=== PATIENT | female | born 1940 ===

== ENCOUNTER 2017-08-27 06:14 | Day surgery (SDC) | payer MEDICARE ==
[2017-08-27 07:26] VITALS: BMI 28.3
[2017-08-27] MEDS ORDERED: Bupivacaine 0.5% Inj(30mL) ONE (07:30)
[2017-08-27] MEDS ORDERED: Propofol 10 mg/ml Inj (20 ML) ONE ×2 (08:26→08:27)
[2017-08-27] MEDS ORDERED: Midazolam 2 MG/2 ML VIAL ONE (08:26)
[2017-08-27] MEDS ORDERED: Rocuronium 10 mg/ml (5 ml) ONE (08:27)
[2017-08-27] MEDS ORDERED: Glycopyrrolate 0.2 mg/ml (2ml vial) ONE (09:45)
[2017-08-27] MEDS ORDERED: Neostigmine Methylsulfate 3mg/3ml Syringe IV ONE (09:45)
[2017-08-27] MEDS ORDERED: Morphine 2 mg/ml ISec IVP PRN ×2 (09:58→11:57)
[2017-08-27] MEDS ORDERED: Lactated Ringer's 1,000 ML IV SCH (10:00)
[2017-08-27] MEDS ORDERED: Oxycodone/Acetaminophen 5/325 mg Tab PO PRN (10:09)
--- NOTE | 2017-08-27 10:09 | PCM.SURG1 ---
Surgeon's Initial Post Op Note - Surgeon's Notes Surgeon: Dr. Rankin Product Safety Expert: Dr. Tesfaye PGY3 Type of Anesthesia: General Endo, Block Regional, Local Pre-Operative Diagnosis: incarcerated right inguinal hernia Operative Findings: hernia sac w/ fat contents, cord lipoma Post-Operative Diagnosis: same Operation Performed: open right inguinal hernia repair w/ mesh Specimen/Specimens Removed: cord lipoma, hernia sac Estimated Blood Loss: EBL {In ML}: 5 Blood Products Given: N/A Drains Used: No Drains Post-Op Condition: Good Date of Surgery/Procedure: 08/27/17 Time of Surgery/Procedure: 10:08
[2017-08-27] MEDS ORDERED: Morphine 2 mg/ml ISec ONE (10:58)
[2017-08-27 11:33] VITALS: RESP 18; TEMP 97.4; O2SAT 98
[2017-08-27] MEDS ORDERED: Oxycodone/Acetaminophen 5/325 mg Tab ONE (12:07)
[2017-08-27 12:25] VITALS: BP 133/64; PULSE 73
[2017-08-27] MEDS ORDERED: NATEGLINIDE 120 MG PO SCH (18:00)
--- NOTE | 2017-08-28 08:51 | OP ---
PROCEDURE DATE: 08/27/2017 PREOPERATIVE DIAGNOSIS: Incarcerated right inguinal hernia. POSTOPERATIVE DIAGNOSIS: Indirect incarcerated inguinal hernia. PROCEDURE PERFORMED: Repair of the incarcerated indirect right inguinal hernia with dual mesh. SURGEON: Jose Rankin MD. SEWING MACHINE MAINTENANCE MECHANIC: Dr. Tesfaye. TYPE OF ANESTHESIA: General endotracheal anesthesia. ANESTHESIA ADMINISTERED BY: Dr. King. ESTIMATED BLOOD LOSS: Minimal. SPECIMEN: Hernia sac and cord lipoma. INDICATIONS: The patient is a 76-year-old female with complaint of a large bulge in the right groin, associated tenderness and discomfort when she was seen in the office. The patient was complaining of occasional nausea. No vomiting. The patient also had a pulling pain extending into the right groin and thigh. DESCRIPTION OF PROCEDURE: The patient was brought to the operating room, placed on the operating table in supine position. The patient was connected to the EKG, blood pressure and pulse oximetry monitors. The patient then underwent general endotracheal anesthesia and was prepped and draped in usual sterile fashion. First, a standard time-out procedure took place and everybody in the room agreed as to the patient's identity, diagnosis and procedure to be performed. Using #15 blade, an incision was made directly overlying the herniation in the right groin. This was made about 3 cm above the inguinal ligament. Once the incision was made through the skin and subcutaneous tissue after the area was infiltrated with lidocaine mixed with Marcaine, we then carefully dissected through the Kayy's fascia down to external oblique aponeurosis. At that point, the hernia was clearly visible at the external ring. The external oblique aponeurosis was incised along its fibers and elevated carefully. The round ligament was from the underlying hernia sac and large cord lipoma and was mobilized from the floor of the inguinal canal. At this point, it was already said was a indirect herniation located laterally to the inferior epigastric vessels. Once the hernia lipoma's were from the sac, they were amputated at its bases and ligated. The hernia sac was also carefully squeezed out. There was an area of fat in the peritoneum, which was carefully squeezed back and the hernia was amputated by opening it up and suturing it with a purse-string stitch the areas above the fatty patch. Once this was done, the preperitoneal space was mobilized and the UltraPro mesh was placed into the area and sutured to the transversalis fascia and the inguinal ligament using 0 Vicryl stitches. The external portion of the mesh was placed around the round ligament by cutting out a keyhole in it and put flatly on the floor of the inguinal canal. The ilioinguinal nerve together with the round ligament were carefully placed back in its original position. The external oblique aponeurosis was sutured together using 3-0 Vicryl. Subcutaneous tissues were closed in layers using 3-0 Vicryl and the skin was closed using 4-0 Monocryl in a subcuticular fashion. A sterile Dermabond dressing was applied on the wound. The patient tolerated the procedure well and there were no complications. The patient was awakened and transferred to the recovery room for further observation. Jose Rankin MD
[2017-09-03] MEDS ORDERED: ALENDRONATE SODIUM 35 MG PO SCH (10:00)
== END 2017-08-27 13:20 | disposition home or self-care (01) ==
LOC: SDS 06:14
PROVIDERS: ATTEND General Practice
DX: K40.30 Unilateral inguinal hernia, with obstruction, without gangrene, not specified as recurrent (principal); I10 Essential (primary) hypertension; E11.9 Type 2 diabetes mellitus without complications; I25.10 Atherosclerotic heart disease of native coronary artery without angina pectoris
CPT/HCPCS: 49507; 88302; C1781; J0690; J1885; J2001; J2250; J2270; J2405; J2704; J2710; J2765; J3010; J7120 ×2